=== PATIENT | male | born 1950 | race Caucasian/White ===

== ENCOUNTER → 2017-02-11 | Outpatient (CLI) | payer MEDICARE, BC ==
[2014-04-29 11:09] VITALS: BP 138/85
[~2017-02-11] MED LIST: ASPIRIN 81M81 MG/TA2 PO; CALCIUM CITRATE1 TA5 PO; LEVOTHYROXIN0.075 M1 PO; LOSARTAN POTASS50 MG PO; RABEPRAZOLE SOD20 MG PO; VITAMIN C PUR1000 MG PO
== END ==
LOC: RAD 11:03
DX: M25.562 Pain in left knee (principal); M25.662 Stiffness of left knee, not elsewhere classified

== ENCOUNTER → 2017-11-11 | Day surgery (SDC) | payer BC ==
[2014-04-29 11:09] VITALS: BP 138/85
== END ==
LOC: MSO 09:06
DX: Z12.11 Encounter for screening for malignant neoplasm of colon (principal); K63.89 Other specified diseases of intestine; Z80.0 Family history of malignant neoplasm of digestive organs; Z79.82 Long term (current) use of aspirin; I10 Essential (primary) hypertension; I42.9 Cardiomyopathy, unspecified; I25.10 Atherosclerotic heart disease of native coronary artery without angina pectoris
CPT/HCPCS: 00811; J2704; J7120

== ENCOUNTER → 2020-08-08 | Outpatient (CLI) | payer BC ==
[2014-04-29 11:09] VITALS: BP 138/85
== END ==
LOC: RAD 08-03 09:00
DX: I42.8 Other cardiomyopathies (principal); I34.0 Nonrheumatic mitral (valve) insufficiency

== ENCOUNTER 2022-02-05 19:03 | Emergency (ER) | payer BC ==
[~2022-02-05] VITALS: Ht 182.9 cm; Wt 118.2 kg
[2022-02-05 20:56] LABS: HEMATOCRIT 35.9 % (42.0-52.0); HEMOGLOBIN 11.6 g/dL (13.5-18.0); MEAN CELL VOLUME 97 fl (78-100); MEAN CORPUSCULAR HEMOGLOBIN 31 pg (27-31); MEAN CORPUSCULAR HGB CONC 32 g/dL (33-37); PLATELET COUNT 357 K/mm3 (130-400); RED BLOOD COUNT 3.72 M/mm3 (4.20-5.60); RED CELL DISTRIBUTION WIDTH 14.2 % (11.5-14.5); WHITE BLOOD COUNT 15.9 K/mm3 (4.8-10.8)
[2022-02-05 21:06] LABS: ALBUMIN 2.8 g/dL (3.4-4.8)
[2022-02-05 21:07] LABS: POTASSIUM 3.4 mmol/L (3.5-5.1); SODIUM 140 mmol/L (136-145)
[2022-02-05 21:08] LABS: CALCIUM 7.9 mg/dL (8.3-10.5)
[2022-02-05 21:09] LABS: GLUCOSE 113 mg/dL (75-110); TOTAL PROTEIN 5.4 g/dL (6.2-8.1)
[2022-02-05 21:10] LABS: CARBON DIOXIDE 26 mmol/L (23-31)
[2022-02-05 21:11] LABS: NEUTROPHILS 63 % (42-75); TOTAL BILIRUBIN 0.5 mg/dL (0.2-1.2)
[2022-02-05 21:13] LABS: LYMPHOCYTE 20 % (20-51); MONOCYTE 14 % (3-10)
[2022-02-05 21:14] LABS: AST-SGOT 14 U/L (5-34)
[2022-02-05 21:15] LABS: ALT/SGPT 12 U/L (0-55)
[2022-02-05 21:16] LABS: LIPASE 9 U/L (8-78)
[2022-02-05 21:22] LABS: TROPONIN-I < 0.030 ng/mL (<0.030)
[2022-02-05 21:46] LABS: PARTIAL THROMBOPLASTIN TIME 20.1 SECONDS (21.0-32.0); PROTHROMBIN TIME 12.5 SECONDS (9.0-12.0)
[2022-02-05 21:47] LABS: D-DIMER 0.42 mg/L FEU (0.15-0.50)
[2022-02-06 00:32] VITALS: BP 125/81
== END 2022-02-06 00:37 | disposition short-term general hospital (02) ==
LOC: ED 19:03
PROVIDERS: Nurse Practitioner
DX: K92.2 Gastrointestinal hemorrhage, unspecified (principal); E87.6 Hypokalemia; K92.0 Hematemesis; R55 Syncope and collapse; Z86.16 Personal history of COVID-19
CPT/HCPCS: C9113; Q9967

== ENCOUNTER → 2022-03-18 | Outpatient (CLI) | payer BC | LOC: RAD 11:07 | DX: R93.89 Abnormal findings on diagnostic imaging of other specified body structures (principal) ==

== ENCOUNTER 2023-10-29 07:55 | Outpatient (RCR) | payer BC | END 2023-11-24 | disposition home or self-care (01) | LOC: PT | DX: M17.0 Bilateral primary osteoarthritis of knee (principal) ==

== ENCOUNTER → 2023-11-13 | Outpatient (CLI) | payer BC | LOC: RAD 09:36 | DX: Z01.818 Encounter for other preprocedural examination (principal) ==

== ENCOUNTER 2023-12-12 08:00 | Outpatient (RCR) | payer BC | END 2023-12-25 | disposition home or self-care (01) | LOC: PT | DX: M17.0 Bilateral primary osteoarthritis of knee (principal); Z96.651 Presence of right artificial knee joint ==

== ENCOUNTER 2024-01-02 08:00 | Outpatient (RCR) | payer BC | END 2024-01-24 | disposition home or self-care (01) | LOC: PT | DX: M17.0 Bilateral primary osteoarthritis of knee (principal); Z96.651 Presence of right artificial knee joint ==